=== PATIENT | male | born 1970 | race Caucasian/White ===

== ENCOUNTER → 2023-04-10 | Outpatient (CLI) | payer OTHER, SELFPAY ==
[2023-04-10 17:55] LABS: AST(SGOT) 21 U/L (15-37); Alanine Aminotransfer ALT/SGPT 25 U/L (16-61); Albumin, Serum 3.5 g/dL (3.2-5.0); Alkaline Phosphatase 52 U/L (45-117); Bilirubin, Direct 0.16 mg/dL (0.00-0.30); Cholesterol 178 mg/dL (200); Globulin 3.5 g/dL (2.2-4.2); High Density Lipoprotein 39 mg/dL; Triglycerides 124 mg/dL; Very Low Density Lipoprotein 25 mg/dL (5-40)
== END | disposition home or self-care (01) ==
LOC: LAB 15:21
PROVIDERS: PCP Nurse Practitioner Family; Visit Provider Internal Medicine Cardiovascular Disease
DX: E78.5 Hyperlipidemia, unspecified (principal)
CPT/HCPCS: 36415; 80061; 80076

== ENCOUNTER → 2023-06-27 | Outpatient (CLI) | payer SELFPAY, OTHER ==
--- NOTE | 2023-06-27 12:31 | CT_ITS ---
STUDY: CT CHEST WITHOUT CONTRAST REASON FOR EXAM: Male, 52 years old. Essential (primary) hypertension. Cardiac over read examination. RADIATION DOSAGE (If Supplied By Facility): CTDIvol = ( 12.19 ) mGy, DLP = ( 219.42 ) mGycm TECHNIQUE: Transaxial imaging was performed without the administration of intravenous contrast material. Individualized dose optimization techniques were used for this CT. COMPARISON: No relevant priors. FINDINGS: CHEST The lungs are normal. There is no demonstrated pleural abnormality. There are calcifications of the coronary arteries. Normal mediastinum. Normal hilar regions. Normal unenhanced pulmonary arteries. Normal aorta arch and descending thoracic aorta. There are degenerative changes of the thoracic spine. There is no demonstrated abnormality of the visualized upper abdomen. CT/Limited Chest CT Cardiac Only IMPRESSION: Coronary artery calcification. Electronically Signed: Aubrey Boogie MD at 13:40 EDT ,
--- NOTE | 2023-06-27 12:31 | STEWCON_ITS ---
Reason For Study: Hypertension, Family history of CAD Stress Results Stress Echocardiogram-Benedicto Protocol with Protocol: Definity Maximum Predicted HR: 166 bpm Target HR: 141 bpm % Maximum Predicted HR: 99 % DurationHeart Rate Stage (mm:ss) (bpm) BP Comment Baseline 64 120/88Patient denies chest pain Stage 1 3:00 120 166/98Patient denies chest pain Stage 2 3:00 134 184/102Patient denies chest pain Stage 3 3:00 153 192/102Patient denies chest pain Stage 4 0:45 164 / Shortness of breath. Denies chest pain Recovery 1:33 144 88/ 3ml total Definity used per protocol. Patient denies chest pain. Stress Duration: 11:18 mm:ss Maximum Stress HR: 164 bpm Baseline Echocardiogram Findings Stress Echo Wall motion Data Resting WM Intermediate WM Stress WM ECHO/Stress Test Echo W/Contrast Interpretation Summary Exercise stress echo. 52-year-old male with a history of chest pain. Stress protocol: Resting EKG demonstrates normal sinus rhythm with a rate of 64 bpm normal inter vals are noted resting blood pressure is 120/88 mmHg. The patient exercised according to regul ok Benedicto protocol for a total duration of 9 minutes and 45 seconds. The maximum heart rate attained w as 176 bpm which was 106% of max impacted heart rate the maximum workload was 12.5 metabolic equival ents. The patient maintained sinus rhythm throughout the recording. At rest there were no ST or T wave changes noted suggest ischemia and at peak exercise upsloping ST changes were noted which did not meet the criteria for ischemia. Good blood pressure response to exercise was noted. The peak blood pressure was 192/102 mmHg. No angina was noted. Stress echocardiogram. Resting echocardiogram demonstrated preserved left ventricular systolic functio n estimated at 55% with no wall motion abnormalities noted Definity was used. At peak exercise the re was thickening of all valles contraction of left ventricular cavity size and peaking of ejection f raction of 70%. Conclusion: Stress echo with no evidence of ischemia at a high workload. Preserved ejection fraction at rest and with exercise No angina noted Ordering Physician: Horacio Pagan Referring Physician: Horacio Pagan Performed By: Shiloh Cardenas RCS
--- NOTE | 2023-06-27 16:48 | CA.SCORE ---
Calcium Scoring Date of Study:: 06/27/23 Indications Indications: Family history of coronary disease Coronary Calcium Scoring: High-resolution Computed Tomographic imaging of the chest was performed on [06/27/2030], with particular attention paid to the coronary arteries. Images from the examination were analyzed for the presence and extent of coronary artery calcification , using coronary calcium quantification software. The patient tolerated the procedure well and there were no complications. The results of the coronary calcification analysis are provided below. Findings Coronary Artery Left Main (LM): 61 Left Anterior Descending (LAD): 1 Left Circumflex (LCX): 33 Right Coronary Artery (RCA): 49 Total Agatston Score: 144 Percentile Rankinth to 90th percentile Calcium Scoring Interpretation: Different methods to categorize the overall amount of coronary plaque. Overall amount CAC SIS Visual of coronary plaque P1 Mild -100 <2 1-2 vessels with mild amount of plaque P2 Moderate 101-300 3-4 1-2 vessels with moderate amount, 3 vessels with mild amount of plaque P3 Severe 301-999 5-7 3 vessels with moderate amount, 1 vessel with severe amount of plaque P4 Extensive >1000 >8 2-3 vessels with severe amount of plaque Calcium Score: Moderate: 1-2 vessels w/moderate amt, 3 vessels w/mild amt of plaque Conclusion: Mild to moderate diffuse plaquing noted.
== END | disposition home or self-care (01) ==
LOC: CT 12:30
PROVIDERS: PCP Nurse Practitioner Family; Referring Provider Internal Medicine Cardiovascular Disease; Visit Provider Internal Medicine Cardiovascular Disease
DX: E78.5 Hyperlipidemia, unspecified (principal); I10 Essential (primary) hypertension; Z82.49 Family history of ischemic heart disease and other diseases of the circulatory system; R07.9 Chest pain, unspecified; I25.10 Atherosclerotic heart disease of native coronary artery without angina pectoris
CPT/HCPCS: 75571; 76380; 93017; 93350; Q9957; A4216; C8928